=== PATIENT | male | born 1975 | race Asian ===

== ENCOUNTER 2017-01-09 20:33 | Emergency (ER) | payer SELFPAY ==
[~2017-01-09] VITALS: Ht 175.3 cm; Wt 67.2 kg
[2017-01-09 20:46] VITALS: TEMP 36.4; O2SAT 100; Ht 175.3 cm; Wt 67.2 kg
[2017-01-09 22:45] LABS: BUN/CREATININE RATIO 7.9 (10-20); CALCIUM 8.7 mg/dl (8.5-10.1); CREATININE 1.1 mg/dl (0.60-1.40); POTASSIUM 3.3 mmol/L (3.5-5.1)
[2017-01-10 01:00] VITALS: BP 129/97
[2017-01-10 01:23] VITALS: PULSE 73; O2SAT 100
--- NOTE | 2017-01-10 04:26 | EMERGENCY ROOM VISIT NOTE ---
History First contact with patient: 21:33 Chief Complaint: ALCOHOL OVERDOSE Stated Complaint: ALCOHOL Nursing Triage Summary: Pt picked up by PD for running around drunk, possibly running at people at scaring them. EMS then called for a conscious alcohol overdose. EMS noted diastolic BP at 114 and brought in for evaluation. Pt denies any symptoms and states he sometimes runs while he drinks. Pt is damp and smells musty. Pt has fleeting thoughts and although speech is clear, he does not make sense with much of what he is saying. History of Present Illness The patient is a 41 year old male who presents to the Emergency Room for evaluation of a local intoxication. The patient was identified by local police after running around downtown and trying to scare people on the sidewalk. The patient smelled of alcohol and was rambling on with his words. The patient presents via EMS does not have complaints at this time. He admits to drinking alcohol tonight but denies drug use. He evidently drinks alcohol on a somewhat regular basis. He does not have injury or trauma. He denies pain or chronic medical disease. He rates his current discomfort a 0/10. Review of Systems More than 10 systems were reviewed and otherwise negative with the exception of history of present illness. Past Medical/Surgical History No chronic medical disease Family History No pertinent family history Social History Smoking Status: Former Smoker Alcohol Use: occasionally Housing Status: lives with family Current/Historical Medications No Active Prescriptions or Reported Meds Physical Exam Vital Signs Date Time Temp Pulse Resp B/P (MAP) Pulse Ox O2 Delivery O2 Flow Rate FiO2 01/10/17 01:23 73 100 01/10/17 01:08 76 100 01/10/17 01:00 129/97 01/10/17 00:53 62 100 01/10/17 00:38 64 14 98 01/10/17 00:30 117/89 01/10/17 00:23 70 12 97 01/10/17 00:08 71 11 99 01/09/17 23:53 83 17 99 01/09/17 23:38 65 11 99 01/09/17 23:30 124/92 01/09/17 23:23 68 13 100 01/09/17 23:08 70 12 100 01/09/17 23:00 140/103 01/09/17 22:53 67 100 01/09/17 22:38 70 100 01/09/17 22:30 138/103 01/09/17 22:23 70 97 01/09/17 22:08 69 13 100 01/09/17 22:03 73 16 100 01/09/17 22:00 121/91 01/09/17 21:48 83 13 100 01/09/17 21:33 66 100 01/09/17 21:30 121/96 01/09/17 21:24 66 01/09/17 21:18 67 12 100 01/09/17 21:03 70 100 01/09/17 21:00 128/95 01/09/17 20:48 84 18 100 01/09/17 20:46 100 Room Air 01/09/17 20:46 125/94 01/09/17 20:46 36.4 77 18 125/94 100 Room Air Pain Rating (0-10): 0 Physical Exam VITALS: Vitals are noted on the nurse's note and reviewed by myself. Vital signs stable. GENERAL: Well-developed, well-nourished, male who is pleasantly intoxicated. He is cooperative with the examination. HEAD: Normocephalic atraumatic. EARS: External ear normal. External auditory canals clear, tympanic membranes pearly morrow without erythema or effusion bilaterally. EYES: Pupils equal round and reactive to light and accommodation. Conjunctivae without injection, sclerae without icterus. Extraocular movements intact. NOSE: Patent, turbinates without inflammation or discharge. MOUTH: Mucous membranes moist. Tonsils are not enlarged. Pharynx without erythema, blood, or exudate. Uvula midline. Airway patent. NECK: Supple without nuchal rigidity. No lymphadenopathy. No thyromegaly. Cervical spine is nontender. HEART: Regular rate and rhythm without murmurs gallops or rubs. LUNGS: Clear to auscultation bilaterally without wheezes, rales or rhonchi. No retractions or accessory muscle use. ABDOMEN: Positive normal bowel sounds x 4. Soft, nontender, without masses or organomegaly. No guarding or rebound tenderness. MUSCULOSKELETAL: No muscle atrophy, erythema, or edema noted. Full range of motion without joint tenderness in all extremities. NEURO: Patient was alert and oriented to person and place but not time. He does appear mildly intoxicated. Medical Decision & Procedures Laboratory Results 01/09/17 22:11 Test 01/09/17 22:11 Anion Gap 11.0 mmol/L (3-11) Est Creatinine Clear Calc Drug Dose 84.8 ml/min Estimated GFR () 96.8 Estimated GFR (Non- 83.5 BUN/Creatinine Ratio 7.9 (10-20) Calcium Level 8.7 mg/dl (8.5-10.1) Chemistry Specimen Hemolysis Ethyl Alcohol mg/dL 141.0 mg/dl (0-3) ED Course Physical exam and history were performed. Nursing notes, EMR, and Medication List were personally reviewed. Patient appears to have been drinking alcohol tonight. He was identified by police and brought to the emergency department for evaluation. The patient does not appear toxic on exam. He does not have outward signs of injury or trauma. He denies drug use and does consent to blood work. Blood work was obtained, and the patient does have an alcohol of 141. The patient was monitored here in the emergency department for several hours. During this time he was able to sober up after sleeping in his ER bed. He was reevaluated and feels comfortable with discharge home. I recommended the patient follow with his primary care physician for further care and management. He was otherwise invited back to ER with any new, worsening, or concerning symptoms. The chart was completed utilizing [employer] Speech Voice Recognition Software. Grammatical errors, random word insertions, pronoun errors, and incomplete sentences are an occasional consequence of this system due to software limitations, ambient noise, and hardware issues. Any formal questions or concerns about the content, text, or information contained within the body of this dictation should be directly addressed to the provider for clarification. . Medical Decision Differential diagnosis: Etiologies such as alcohol intoxication, toxicologic, infection, hypoglycemia, electrolyte abnormalities, cardiac sources, intracerebral event, neurologic, as well as others were entertained. Medication Reconcilliation Current Medication List: was personally reviewed by me Blood Pressure Screening Blood pressure disposition: Elevated BP felt to be situational Impression Primary Impression: Alcohol use with intoxication Departure Information Dispostion Home / Self-Care Condition GOOD Prescriptions No Active Prescriptions or Reported Meds Referrals No Doctor, Assigned (PCP) Forms HOME CARE DOCUMENTATION FORM, IMPORTANT VISIT INFORMATION Patient Instructions My [facility] Additional Instructions You were seen and evaluated today on an emergency basis only. This is not a substitute for, or an effort to provide, complete comprehensive medical care. It is not possible to recognize and treat all injuries or illnesses in a single emergency department visit. Keep well-hydrated. Small sips of water over a long period of time are better tolerated than large amounts at once. Tylenol 1000 mg every 6 hours as needed for pain (Maximum 3000 mg Tylenol in 24 hr period). Follow up with family doctor as needed. You are welcome to return to the emergency department anytime with new, worsening, or concerning symptoms.
== END 2017-01-10 01:37 | disposition home or self-care (01) ==
LOC: EDBD 20:33 → C.EDC 20:34
DX: F10.929 Alcohol use, unspecified with intoxication, unspecified (principal); Z87.891 Personal history of nicotine dependence

== ENCOUNTER 2017-07-28 02:53 | Emergency (ER) | payer SELFPAY ==
[2017-07-28 02:53] VITALS: TEMP 36.4; O2SAT 100
[2017-07-28 04:08] LABS: BLOOD UREA NITROGEN 9 mg/dl (7-18); CALCIUM 9.2 mg/dl (8.5-10.1); CARBON DIOXIDE 24 mmol/L (21-32); CREATININE 1.31 mg/dl (0.60-1.40); GLUCOSE 104 mg/dl (70-99); POTASSIUM 3.5 mmol/L (3.5-5.1); SODIUM 139 mmol/L (136-145)
--- NOTE | 2017-07-28 05:27 | EMERGENCY ROOM VISIT NOTE ---
History First contact with patient: 02:57 Chief Complaint: ALCOHOL OVERDOSE Stated Complaint: ALCOHOL Nursing Triage Summary: pt brought to main ED by BLS services. per BLS: pt was wandering in and out of traffic [place] [address] [place], reports alcohol, pt slow to answer questions. upon assessment, pt asked if he speaks tajik or would like a cardio tech pad. pt states "Swedish, i will speak tajik i think." pt uncooperative with answering questions, does not answer most orientation questions, will state name, pt will not answer whether or not he used drugs. when asked if he has a ride he can call pt states "I might be able to call my mom. emphasis on the might." BAKARI Scott offered to pt to call mother to come get him, pt refuses at this time. when asked how much alcohol he consumed, pt states "the idea of being drunk is all about whether or not someone precieves something as linier." pt alert, breathing regularly and independently. pt responds and follows commands appropriately. pt cooperative at this time. History of Present Illness The patient is a 42 year old male who presents to the Emergency Room with complaints of alcohol intoxication. Patient was found wandering in the street by the police and EMS was summoned. Patient states he has been drinking alcohol. No drugs. Patient denies any medical complaints. Review of Systems An 10 system review of systems was completed with positives and pertinent negatives listed in the HPI. Past Medical/Surgical History None Social History Smoking Status: Former Smoker Alcohol Use: occasionally Housing Status: lives with family Current/Historical Medications No Active Prescriptions or Reported Meds Physical Exam Vital Signs Date Time Temp Pulse Resp B/P (MAP) Pulse Ox O2 Delivery O2 Flow Rate FiO2 07/28/17 05:00 83 18 126/94 98 Room Air 07/28/17 04:24 88 16 87/ 100 Room Air 07/28/17 03:05 90 07/28/17 02:53 100 Room Air 07/28/17 02:53 100 Room Air 07/28/17 02:53 36.4 88 18 140/96 100 Room Air Physical Exam PHYSICAL EXAM: VITALS: Vitals are noted on the nurse's note and reviewed by myself. Vital signs stable. GENERAL: Male with EtOH odor, in no acute distress, nondiaphoretic, well- developed well-nourished. The patient is visibly intoxicated. SKIN: The skin was without obvious lacerations, abrasions, or rashes. There is no tenting of the skin. Capillary reflex less than 2 seconds. HEENT: Normocephalic, atraumatic. PERRLA. EOMI. Conjunctiva with mild injection without icterus. Tympanic membranes without erythema or effusion bilaterally no hemotympanum. External auditory canals are clear. Nares patent bilaterally. No epistaxis. Oropharynx without erythema or exudate. Uvula midline. Oral mucosal moist. No lymphadenopathy. Neck is supple without cervical spine tenderness. HEART: Regular rate and rhythm without murmurs gallops or rubs. Peripheral pulses 2+. LUNGS: Clear to auscultation bilaterally without wheezes, rales or rhonchi. ABDOMEN: Positive bowel sounds x 4. Normal tympanic percussion. Soft, nontender, without masses or organomegaly. MUSCULOSKELETAL: Gross motor function of the upper and lower extremities intact. The patient has a staggering gait. NEUROLOGIC: The patient is visibly intoxicated. Once they were more sober they were alert and oriented to person place and time. Medical Decision & Procedures Laboratory Results 07/28/17 03:22 Test 07/28/17 03:22 Anion Gap 9.0 mmol/L (3-11) Estimated GFR () 77.8 Estimated GFR (Non- 67.2 BUN/Creatinine Ratio 6.9 (10-20) Calcium Level 9.2 mg/dl (8.5-10.1) Chemistry Specimen Hemolysis Ethyl Alcohol mg/dL 201.0 mg/dl (0-3) ED Course Prior records/ancillary studies reviewed. Triage Nursing notes reviewed. Additional history obtained from EMS. The patient's history was concerning for altered mental status and a possible alcohol overdose. Differential diagnosis: Etiologies such as alcohol intoxication, toxicologic, infection, hypoglycemia, electrolyte abnormalities, cardiac sources, intracerebral event, neurologic, as well as others were entertained. Physical examination: As above. The patient is clinically intoxicated. no trauma noted. ER treatment provided: Monitoring Aspiration precautions The patient was frequently reassessed. Diagnostic interpretation by me: Cardiac monitoring did not reveal any evidence of dysrhythmia. The labs revealed no worrisome electrolyte normality. The patient's blood alcohol level was 201 mg/dL. The patient's history was reviewed once they were more coherent and their intoxication cleared. The patient states they have been in good health recently and had no medical complaints. The patient admitted to consuming alcohol. No additional concerning findings were noted. The patient complained of no symptoms to suggest assault. This appears to be consistent with an isolated overdose of alcohol. By the evaluation outlined above emergent etiologies such as trauma, infection, hypoglycemia, electrolyte abnormalities, cardiac sources, intracerebral event, neurologic,as well as others were deemed relatively unlikely. The patient was informed about the findings as listed above. The patient was counseled on the dangers of excessive alcohol use. I gave my usual and customary discussion regarding this issue. All questions were answered and the patient was pleased with the treatment. Return instructions were outlined and the patient was discharged in stable condition once their mental status improved and a safe destination was confirmed. Outpatient prescription management: None Referral: The patient was referred back to their primary care physician for follow-up in 2 to 3 days for a recheck of their current condition. Medical Decision As above Medication Reconcilliation Current Medication List: was personally reviewed by me Blood Pressure Screening Patient's blood pressure: Elevated blood pressure Blood pressure disposition: Referred to PCP Impression Primary Impression: Alcohol use with intoxication Departure Information Dispostion Home / Self-Care Condition GOOD Prescriptions No Active Prescriptions or Reported Meds Referrals No Doctor, Assigned (PCP) Patient Instructions My [facility] Additional Instructions Keep well-hydrated. Tylenol every 6 hours as needed for pain (Maximum 3000 mg Tylenol in 24 hr period). Follow up with family doctor and/or health services as needed. No driving for the next 24 hours. Recommend no alcohol for the next 48 hours and avoid binge drinking in the future. Return to ER sooner for chest pain, abdominal pain, worsening signs or symptoms or as needed.
[2017-07-28 05:50] VITALS: BP 117/70; PULSE 92; O2SAT 99
== END 2017-07-28 05:50 | disposition home or self-care (01) ==
LOC: EDBD 02:53 → C.EDB 02:54
DX: F10.129 Alcohol abuse with intoxication, unspecified (principal); Z87.891 Personal history of nicotine dependence; Y90.7 Blood alcohol level of 200-239 mg/100 ml